=== PATIENT | male | born 1955 | race Hispanic/Latino ===

== ENCOUNTER → 2021-01-27 | Outpatient (CLI) | payer OTHER ==
[~2021-01-27] MED LIST: AEC81 PO; APIX5TAB PO; ATOR40TA69 PO; ATORVASTATIN PO; DRON400T7 PO; LISI-809 PO; METF-444 PO; METO50TA18 PO; NITR0.4T50 SL; OMEP20CA12 PO
== END | disposition home or self-care (01) ==
LOC: RAH 09:26
PROVIDERS: ATTEND Internal Medicine Cardiovascular Disease
DX: R94.5 Abnormal results of liver function studies (principal); R74.8 Abnormal levels of other serum enzymes
CPT/HCPCS: 76705